=== PATIENT | male | born 1960 | race Caucasian/White ===

== ENCOUNTER 2017-04-24 19:06 | Inpatient (IN) | payer SELFPAY ==
[~2017-04-24] VITALS: Ht 177.8 cm; Wt 67.9 kg
[2017-04-24 19:40] VITALS: BP 211/109; PULSE 85; RESP 18; TEMP 98.7; O2SAT 98
[2017-04-24 20:05] VITALS: BP 214/114; PULSE 86; RESP 20; TEMP 98.6; O2SAT 98
[2017-04-24] MEDS ORDERED: PANTOPRAZOLE SODIUM 40 MG VIAL IV PUSH ONE (20:15)
[2017-04-24] MEDS ORDERED: MORPHINE SULFATE 4 MG/ML INJ IV PUSH ONE (20:15)
--- NOTE | 2017-04-24 20:18 | PD ---
HPI Chief Complaint: Abdominal Pain Time Seen by Provider: 20:01 Travel History International Travel<30 days: No Contact w/Intl Traveler<30days: No Traveled to known affect area: No History of Present Illness HPI 57yo M with no PMH presents to the ED with c/o epigastric abdominal pain for 2 days. Said it is sharp, intermittent and nonradiating. Associated with blood in diarrhea. Pt said he drinks alcohol but not every day, maybe every 2-3 days. Pt has not seen a physician in 25 years and has had blood in stool before but never seek medical attention. Denies any fever, chest pain, sob, n/ v. No exacerbating or alleviating factors. PFSH Past Medical History Tetanus Vaccination: Never Vaccinated Influenza Vaccination: No Social History Alcohol Use: Yes (Few beers a week ) Tobacco Use: Yes (1 PPD) Substance Use: Yes (Marijuana Daily ) Allergies-Medications (Allergen,Severity, Reaction): Coded Allergies: No Known Allergies (Unverified , 04/24/17) Review of Systems Except as stated in HPI: all other systems reviewed are Neg Physical Exam Narrative GENERAL: 57yo M in mild distress. SKIN: Focused skin assessment warm/dry. HEAD: Atraumatic. Normocephalic. CARDIOVASCULAR: Regular rate and rhythm. No murmur appreciated. RESPIRATORY: No accessory muscle use. Clear to auscultation. Breath sounds equal bilaterally. GASTROINTESTINAL: Abdomen soft, +TTP Epigastric, LLQ, and suprapubic region. No rebound tenderness or guarding. MUSCULOSKELETAL: No obvious deformities. No clubbing. No cyanosis. No edema. RECTAL: Could not get much stool but from what I had, it was black and it was hemaprompt positive. NEUROLOGICAL: Awake and alert. No obvious cranial nerve deficits. Motor grossly within normal limits. Normal speech. PSYCHIATRIC: Appropriate mood and affect; insight and judgment normal. Data Data Last Documented VS Vital Signs Date Time Temp Pulse Resp B/P (MAP) Pulse Ox O2 Delivery O2 Flow Rate FiO2 04/24/17 21:49 82 18 152/98 (116) 98 Room Air 04/24/17 20:05 98.6 Orders Orders Complete Blood Count With Diff (04/24/17 20:09) Comprehensive Metabolic Panel (04/24/17 20:09) Lipase (04/24/17 20:09) Prothrombin Time / Inr (Pt) (04/24/17 20:09) Act Partial Throm Time (Ptt) (04/24/17 20:09) Urinalysis - C+S If Indicated (04/24/17 20:09) Ct Abd/Pel W Iv Contrast(Rout) (04/24/17 20:09) Morphine Inj (Morphine Inj) (04/24/17 20:15) Electrocardiogram (04/24/17 20:09) Type And Screen (04/24/17 20:13) Pantoprazole Inj (Protonix Inj) (04/24/17 20:15) Troponin I (04/24/17 20:20) Iohexol 350 Inj (Omnipaque 350 Inj) (04/24/17 21:20) Ciprofloxacin 400 Mg Premix (Cipro 400 M (04/24/17 22:00) Metronidazole (Flagyl) (04/24/17 22:00) Morphine Inj (Morphine Inj) (04/24/17 22:15) Ciprofloxacin 400 Mg Premix (Cipro 400 M (04/25/17 09:00) Metronidazole (Flagyl) (04/25/17 06:00) Admit To Inpatient (04/24/17 ) Vital Signs (Adult) Q4H (04/24/17 22:19) Activity Oob Ad Lillie (04/24/17 22:19) Intake + Output MOJGAN.QSHIFT (04/24/17 22:19) Diet Regular Basic (04/25/17 Breakfast) Sodium Chlor 0.9% 1000 Ml Inj (Ns 1000 M (04/24/17 22:19) Sodium Chloride 0.9% Flush (Ns Flush) (04/24/17 22:30) Sodium Chloride 0.9% Flush (Ns Flush) (04/25/17 09:00) Ondansetron Inj (Zofran Inj) (04/24/17 22:30) Comprehensive Metabolic Panel (04/25/17 06:00) Complete Blood Count With Diff (04/25/17 06:00) Scd Bilateral/Knee High MOJGAN.BID (04/24/17 22:19) Suresh Bilateral/Knee High MOJGAN.QSHIFT (04/24/17 22:20) Acetaminophen (Tylenol) (04/24/17 22:30) Acetamin-Hydrocod 325-5 Mg (B[place]lett 5-325 (04/24/17 22:30) Morphine Inj (Morphine Inj) (04/24/17 22:30) Docusate Sodium-Senna (Donna-Colace) (04/25/17 09:00) Magnesium Hydroxide Liq (Milk Of Magnesi (04/24/17 22:30) Sennosides (Senokot) (04/24/17 22:30) Bisacodyl Supp (Dulcolax Supp) (04/24/17 22:30) Lactulose Liq (Lactulose Liq) (04/24/17 22:30) Inpatient Certification (04/24/17 ) Famotidine Inj (Pepcid Inj) (04/25/17 09:00) Admit Order (Ed Use Only) (04/24/17 22:21) Labs Laboratory Tests Test 04/24/17 20:20 04/24/17 21:48 White Blood Count 6.9 TH/MM3 Red Blood Count 4.74 MIL/MM3 Hemoglobin 16.3 GM/DL Hematocrit 47.6 % Mean Corpuscular Volume 100.5 FL Mean Corpuscular Hemoglobin 34.4 PG Mean Corpuscular Hemoglobin Concent 34.3 % Red Cell Distribution Width 14.0 % Platelet Count 201 TH/MM3 Mean Platelet Volume 9.4 FL Neutrophils (%) (Auto) 71.9 % Lymphocytes (%) (Auto) 19.2 % Monocytes (%) (Auto) 7.6 % Eosinophils (%) (Auto) 0.8 % Basophils (%) (Auto) 0.5 % Neutrophils # (Auto) 4.9 TH/MM3 Lymphocytes # (Auto) 1.3 TH/MM3 Monocytes # (Auto) 0.5 TH/MM3 Eosinophils # (Auto) 0.1 TH/MM3 Basophils # (Auto) 0.0 TH/MM3 CBC Comment DIFF FINAL Differential Comment Prothrombin Time 9.8 SEC Prothromb Time International Ratio 1.0 RATIO Activated Partial Thromboplast Time 27.5 SEC Blood Urea Nitrogen 11 MG/DL Creatinine 0.76 MG/DL Random Glucose 92 MG/DL Total Protein 8.0 GM/DL Albumin 3.8 GM/DL Calcium Level 9.1 MG/DL Alkaline Phosphatase 88 U/L Aspartate Amino Transf (AST/SGOT) 61 U/L Alanine Aminotransferase (ALT/SGPT) 70 U/L Total Bilirubin 0.9 MG/DL Sodium Level 128 MEQ/L Potassium Level 4.1 MEQ/L Chloride Level 94 MEQ/L Carbon Dioxide Level 25.8 MEQ/L Anion Gap 8 MEQ/L Estimat Glomerular Filtration Rate 106 ML/MIN Troponin I LESS THAN 0.02 NG/ML Lipase 168 U/L Urine Color YELLOA Urine Turbidity CLEAR Urine pH 6.5 Urine Specific [place] GREATER THAN 1.035 Urine Protein TRACE mg/dL Urine Glucose (UA) NEG mg/dL Urine Ketones 40 mg/dL Urine Occult Blood TRACE Urine Nitrite NEG Urine Bilirubin NEG Urine Leukocyte Esterase NEG Urine RBC 0-3 /hpf Urine WBC 0-2 /hpf Urine Squamous Epithelial Cells 0-5 /hpf Microscopic Urinalysis Comment CULT NOT INDICATED MDM Medical Decision Making Medical Screen Exam Complete: Yes Emergency Medical Condition: Yes Interpretation(s) EKG: NSR 86bpm. RBBB. 1mm ST segment elevation in V1, V2. 1mm ST depression II, III, aVF. Differential Diagnosis Pancreatitis vs. peptic ulcer disease vs. colitis vs. AV malformation Narrative Course 57yo M with abdominal pain for 2 days. Also with blood in stool. Hemaprompt positive. Pt given protonix. Labs reviewed, no leukocytosis. Mild hyponatremia at 128. Troponin negative. Lipase normal. UA negative. CT a/p showed diffuse wall thickening involving multiple loops of small intestine suggestive of diffuse enteritis. Pt given morphine but pain returned so given a second dose. Pt given cipro and flagyl. Discussed with Dr. Iglesias and accepted to her service for enteritis. HemaPrompt Point of Care Internal Pos. & Neg. Controls: Passed Fecal Specimen Occult Blood: Positive Diagnosis Primary Impression: Enteritis Admitting Information Admitting Physician Requests: Admit Melissa Marshall DO Apr 24, 2017 20:18
[2017-04-24 20:27] VITALS: BP 169/103; PULSE 73; RESP 20; O2SAT 96
[2017-04-24 20:41] LABS: AUTOMATED NEUTROPHIL # 4.9 TH/MM3 (1.8-7.7); BASOPHIL % 0.5 % (0.0-2.0); EOSINOPHIL # 0.1 TH/MM3 (0-0.4); EOSINOPHIL % 0.8 % (0.0-4.0); HEMATOCRIT 47.6 % (39.0-51.0); HEMOGLOBIN 16.3 GM/DL (13.0-17.0); LYMPH % 19.2 % (9.0-44.0); LYMPHOCYTE # 1.3 TH/MM3 (1.0-4.8); MEAN CELL VOLUME 100.5 FL (80.0-100.0); MEAN CORPUSCULAR HEMOGLOBIN 34.4 PG (27.0-34.0); MEAN CORPUSCULAR HGB CONC 34.3 % (32.0-36.0); MEAN PLATELET VOLUME 9.4 FL (7.0-11.0); MONO % 7.6 % (0.0-8.0); MONOCYTE # 0.5 TH/MM3 (0-0.9); NEUT % 71.9 % (16.0-70.0); PLATELET COUNT 201 TH/MM3 (150-450); RED BLOOD COUNT 4.74 MIL/MM3 (4.50-5.90); WHITE BLOOD COUNT 6.9 TH/MM3 (4.0-11.0)
[2017-04-24 20:49] LABS: CHLORIDE 94 MEQ/L (98-107); SODIUM (NA) 128 MEQ/L (136-145)
[2017-04-24 20:53] LABS: CALCIUM 9.1 MG/DL (8.5-10.1)
[2017-04-24 20:54] LABS: ALBUMIN 3.8 GM/DL (3.4-5.0); BICARBONATE 25.8 MEQ/L (21.0-32.0); BLOOD UREA NITROGEN 11 MG/DL (7-18); GLUCOSE,RANDOM 92 MG/DL (74-106)
[2017-04-24 20:55] LABS: PROTHROMBIN TIME - PATIENT 9.8 SEC (9.8-11.6)
[2017-04-24 20:56] LABS: ALT (GPT) 70 U/L (12-78); AST (GOT) 61 U/L (15-37); CREATININE 0.76 MG/DL (0.60-1.30); GLOMERULAR FILTRATION RATE 106 ML/MIN (>89)
[2017-04-24 20:58] LABS: TOTAL BILIRUBIN ADULT 0.9 MG/DL (0.2-1.0)
[2017-04-24 20:59] LABS: ALKALINE PHOSPHATASE 88 U/L (45-117)
[2017-04-24] MEDS ORDERED: IOHEXOL 350 MG/ML 10 ML VIAL (for RAD DIAG) IVCONTRAST ONE (21:20)
[2017-04-24 21:32] LABS: TROPONIN I LESS THAN 0.02 NG/ML (0.02-0.05)
--- NOTE | 2017-04-24 21:35 | RADRPT ---
EXAM DATE/TIME: 04/24/2017 21:07 [place] COMPARISON: No previous studies available for comparison. INDICATIONS : Epigastric pain. IV CONTRAST: 100 cc Omnipaque 350 (iohexol) IV ORAL CONTRAST: No oral contrast ingested. RADIATION DOSE: 8.31 CTDIvol (mGy) MEDICAL HISTORY : None SURGICAL HISTORY : None. ENCOUNTER: Initial ACUITY: 3 days PAIN SCALE: 10/10 LOCATION: Left upper quadrant TECHNIQUE: Volumetric scanning of the abdomen and pelvis was performed. Using automated exposure control and ad justment of the mA and/or kV according to patient size, radiation dose was kept as low as reasonably achievable to obtain optimal diagnostic quality images. DICOM format image data is available electro nically for review and comparison. FINDINGS: There is evidence of diffuse wall thickening involving multiple loops of small intestine suggestive o f diffuse enteritis. Clinical correlation is recommended. Some ascites is noted within the abdomen an d pelvis. Uncomplicated sigmoid diverticulosis is noted. The liver demonstrates diffuse fatty infiltr ation. No focal mass is noted. No biliary ductal dilatation is noted. The gallbladder is unremarkable for the spleen is normal. The pancreas is also normal. The adrenal glands are normal bilaterally. Th e kidneys enhance briskly in observed no evidence of focal mass or hydronephrosis. The urinary bladde r is unremarkable. The prostate gland is calcified. The bowel aorta is calcified but is not aneurysma lly dilated. Inferior vena cava is normal. There is no periaortic, retroperitoneal or mesenteric lymp hadenopathy. The visualized lung bases are clear. CONCLUSION: 1. Diffuse wall thickening involving multiple loops of small intestine suggestive of diffuse enteriti s. Clinical correlation is recommended. 2. Some ascites within the abdomen. 3. Uncomplicated sigmoid diverticulosis. Jesse Willard MD on April 24, 2017 at 21:28 Board Certified Radiologist. This report was verified electronically.
[2017-04-24 21:49] VITALS: BP 152/98; PULSE 82; RESP 18; O2SAT 98
[2017-04-24 21:58] LABS: BLOOD, URINE TRACE (NEG); GLUCOSE,URINE NEG (NEG); KETONE, URINE 40 mg/dL (NEG); NITRITE,URINE NEG (NEG); PH, URINE 6.5 (5.0-8.5); URINE LEUKOCYTE ESTERASE NEG (NEG)
[2017-04-24] MEDS ORDERED: metroNIDAZOLE 500 MG TAB PO ONE (22:00)
[2017-04-24] MEDS ORDERED: CIPROFLOXACIN 400 MG PREMIX 200 ML IV ONE (22:00)
[2017-04-24 22:02] LABS: BILIRUBIN, URINE NEG (NEG)
[2017-04-24 22:14] LABS: URINE COLOR YELLOA (YELLW/STRAW)
[2017-04-24 22:15] LABS: RBC, URINE 0-3 /hpf (0-3); SQUAMOUS EPITHELIAL CELL URINE 0-5 /hpf (0-5); WBC, URINE 0-2 /hpf (0-5)
[2017-04-24] MEDS ORDERED: MORPHINE SULFATE 2 MG/ML INJ IV PUSH ONE (22:15)
[2017-04-24] MEDS: SODIUM CHLOR 0.9% 1000 ML INJ 1,000 ML IV SCH (22:19)
[2017-04-24 22:23] VITALS: BP 143/85; PULSE 74; RESP 18; O2SAT 97
[2017-04-24] MEDS ORDERED: BISACODYL 10 MG SUPP RECTAL PRN (22:30)
[2017-04-24] MEDS ORDERED: SODIUM CHLORIDE 0.9% FLUSH 10 ML FLUSH IV FLUSH PRN (22:30)
[2017-04-24] MEDS ORDERED: LACTULOSE SYRUP 20 GM/30 ML CUP PO PRN (22:30)
[2017-04-24] MEDS ORDERED: ONDANSETRON HCL 4 MG/2 ML VIAL IVP PRN (22:30)
[2017-04-24] MEDS ORDERED: SENNOSIDES 8.6 MG TAB PO PRN (22:30)
[2017-04-24] MEDS ORDERED: ACETAMINOPHEN 325 MG TAB PO PRN (22:30)
[2017-04-24] MEDS ORDERED: MAGNESIUM HYDROXIDE SUSP 30 ML CUP PO PRN (22:30)
[2017-04-24 23:44] VITALS: BP 152/87; PULSE 76; RESP 18; O2SAT 97
[2017-04-25] VITALS (7 sets, daily range): BP systolic 135–197; BP diastolic 80–98; PULSE 60–69; RESP 18–20; TEMP 97.9–99.3; O2SAT 94–95
[2017-04-25] MEDS: MORPHINE SULFATE 2 MG/ML INJ IV PUSH PRN ×3 (00:29→18:23)
[2017-04-25] MEDS: ACETAMINOPHEN/HYDROcodone 325 MG/5 MG TAB PO PRN ×5 (01:43→20:28)
[2017-04-25 04:31] LABS: AUTOMATED NEUTROPHIL # 4.8 TH/MM3 (1.8-7.7); BASOPHIL % 0.7 % (0.0-2.0); EOSINOPHIL # 0.1 TH/MM3 (0-0.4); EOSINOPHIL % 1.3 % (0.0-4.0); HEMATOCRIT 42.8 % (39.0-51.0); HEMOGLOBIN 14.2 GM/DL (13.0-17.0); LYMPH % 21.6 % (9.0-44.0); LYMPHOCYTE # 1.5 TH/MM3 (1.0-4.8); MEAN CELL VOLUME 100.9 FL (80.0-100.0); MEAN CORPUSCULAR HEMOGLOBIN 33.5 PG (27.0-34.0); MEAN CORPUSCULAR HGB CONC 33.2 % (32.0-36.0); MEAN PLATELET VOLUME 8.8 FL (7.0-11.0); MONO % 9.2 % (0.0-8.0); MONOCYTE # 0.7 TH/MM3 (0-0.9); NEUT % 67.2 % (16.0-70.0); PLATELET COUNT 177 TH/MM3 (150-450); RED BLOOD COUNT 4.25 MIL/MM3 (4.50-5.90); RED CELL DISTRIBUTION WIDTH 14.2 % (11.6-17.2); WHITE BLOOD COUNT 7.1 TH/MM3 (4.0-11.0)
[2017-04-25 04:55] LABS: CHLORIDE 97 MEQ/L (98-107); SODIUM (NA) 132 MEQ/L (136-145)
[2017-04-25] MEDS: metroNIDAZOLE 500 MG TAB PO SCH ×3 (05:55→20:28)
[2017-04-25 06:40] LABS: ALKALINE PHOSPHATASE 70 U/L (45-117); ALT (GPT) 51 U/L (12-78); AST (GOT) 43 U/L (15-37); BICARBONATE 29.9 MEQ/L (21.0-32.0); BLOOD UREA NITROGEN 11 MG/DL (7-18); GLOMERULAR FILTRATION RATE 117 ML/MIN (>89); GLUCOSE,RANDOM 92 MG/DL (74-106); TOTAL BILIRUBIN ADULT 0.7 MG/DL (0.2-1.0); TOTAL PROTEIN 6.5 GM/DL (6.4-8.2)
[2017-04-25] MEDS: SODIUM CHLOR 0.9% 1000 ML INJ 1,000 ML IV SCH (08:19)
[2017-04-25] MEDS: SODIUM CHLORIDE 0.9% FLUSH 10 ML FLUSH IV FLUSH SCH (09:00)
[2017-04-25] MEDS ORDERED: CIPROFLOXACIN 400 MG PREMIX 200 ML IV SCH (09:00)
[2017-04-25] MEDS ORDERED: FAMOTIDINE 20 MG/2 ML VIAL IV PUSH SCH (09:00)
[2017-04-25] MEDS: DOCUSATE SODIUM 50 MG/SENNA 8.6 MG TAB PO SCH ×2 (10:02→20:28)
[2017-04-25] MEDS ORDERED: ALUMINUM/MAGNESIUM/SIMETH 30 ML CUP PO PRN (15:00)
--- NOTE | 2017-04-25 15:58 | HHI.HP ---
[facility] Service [place] [facility] Primary Care Physician No Primary Care Physician Admission Diagnosis Enteritis Diagnoses: Chief Complaint: abd pain Travel History International Travel<30 Days: No Contact w/Intl Traveler <30 Da: No Traveled to Known Affected Are: No History of Present Illness This is a 57 year old male with no real past medical history had 4 years on intermittent severe abd pain worse over the last 6 months and unresolved for the pastt 3 days. Associated with bloody non-painful stools. No emesis. Pain is better with zantac and rolaids. He was evaluated in the ER and found to have enteritis on the CT. he was admitted. his Hg has remained stable and his pain has improved with IV morphine Review of Systems Constitutional: DENIES: Diaphoretic episodes, Fatigue, Fever, Weight gain, Weight loss, Chills, Dizziness, Change in appetite, Night Sweats Endocrine: DENIES: Heat/cold intolerance, Polydipsia, Polyuria, Polyphagia Eyes: DENIES: Blurred vision, Diplopia, Eye inflammation, Eye pain, Vision loss , Photosensitivity, Double Vision Ears, nose, mouth, throat: DENIES: Tinnitus, Hearing loss, Vertigo, Nasal discharge, Oral lesions, Throat pain, Hoarseness, Ear Pain, Running Nose, Epistaxis, Sinus Pain, Toothache, Odynophagia Respiratory: DENIES: Apneas, Cough, Snoring, Wheezing, Hemoptysis, Sputum production, Shortness of breath Cardiovascular: DENIES: Chest pain, Palpitations, Syncope, Dyspnea on Exertion , PND, Lower Extremity Edema, Orthopnea, Claudication Gastrointestinal: COMPLAINS OF: Abdominal pain Genitourinary: DENIES: Sexual dysfunction, Urinary frequency, Urinary incontinence, Urgency, Hematuria, Dysuria, Nocturia, Penile Discharge, Testicular Pain, Testicular Swelling Musculoskeletal: DENIES: Joint pain, Muscle aches, Stiffness, Joint Swelling, Back pain, Neck pain Integumentary: DENIES: Abnormal pigmentation, Nail changes, Pruritus, Rash Hematologic/lymphatic: DENIES: Bruising, Lymphadenopathy Immunologic/allergic: DENIES: Eczema, Urticaria Neurologic: DENIES: Abnormal gait, Headache, Localized weakness, Paresthesias, Seizures, Speech Problems, Tremor, Poor Balance Psychiatric: DENIES: Anxiety, Confusion, Mood changes, Depression, Hallucinations, Agitation, Suicidal Ideation, Homicidal Ideation, Delusions Except as stated in HPI: all other systems reviewed are Neg Past Family Social History Past Medical History None Past Surgical History jaw surgery 25 yrs ago Reported Medications None Allergies: Coded Allergies: No Known Allergies (Unverified , 04/24/17) Active Ordered Medications Reviewed in the AM Family History Mother in her 80s from breast ca Father in his 80s from Brain ca Social History Smokes 1ppd x 40 yrs Beer occasionally Works as a baker chef [employer] Physical Exam Vital Signs Vital Signs Date Time Temp Pulse Resp B/P (MAP) Pulse Ox O2 Delivery O2 Flow Rate FiO2 04/25/17 11:00 98.7 04/25/17 10:50 135/80 (98) 04/25/17 10:50 135/80 (98) 04/25/17 10:50 135/80 (98) 04/25/17 07:30 97.9 04/25/17 04:17 99.2 60 18 141/86 (104) 95 04/25/17 00:34 161/89 (113) 94 04/25/17 00:21 99.3 66 20 197/98 (131) 94 04/25/17 00:16 04/24/17 23:44 76 18 152/87 (108) 97 Room Air 04/24/17 22:23 74 18 143/85 (104) 97 Room Air 04/24/17 21:49 82 18 152/98 (116) 98 Room Air 04/24/17 20:27 73 20 169/103 (125) 96 Room Air 04/24/17 20:05 98.6 86 20 214/114 (147) 98 Room Air 04/24/17 19:40 98.7 85 18 211/109 (143) 98 Physical Exam GENERAL: This is a well-nourished, well-developed patient, in no apparent distress. SKIN: No rashes, ecchymoses or lesions. Cool and dry. HEAD: Atraumatic. Normocephalic. No temporal or scalp tenderness. EYES: Pupils equal round and reactive. Extraocular motions intact. No scleral icterus. No injection or drainage. ENT: Nose without bleeding, purulent drainage or septal hematoma. Throat without erythema, tonsillar hypertrophy or exudate. Uvula midline. Airway patent. NECK: Trachea midline. No JVD or lymphadenopathy. Supple, nontender, no meningeal signs. CARDIOVASCULAR: Regular rate and rhythm without murmurs, gallops, or rubs. RESPIRATORY: Clear to auscultation. Breath sounds equal bilaterally. No wheezes , rales, or rhonchi. GASTROINTESTINAL: Abdomen soft, non-tender, nondistended. No hepato-splenomegaly , or palpable masses. No guarding. MUSCULOSKELETAL: Extremities without clubbing, cyanosis, or edema. No joint tenderness, effusion, or edema noted. No calf tenderness. Negative Homans sign bilaterally. NEUROLOGICAL: Awake and alert. Cranial nerves II through XII intact. Motor and sensory grossly within normal limits. Five out of 5 muscle strength in all muscle groups. Normal speech. Laboratory Laboratory Tests Test 04/24/17 20:20 04/24/17 21:48 04/25/17 04:20 White Blood Count 6.9 7.1 Red Blood Count 4.74 4.25 Hemoglobin 16.3 14.2 Hematocrit 47.6 42.8 Mean Corpuscular Volume 100.5 100.9 Mean Corpuscular Hemoglobin 34.4 33.5 Mean Corpuscular Hemoglobin Concent 34.3 33.2 Red Cell Distribution Width 14.0 14.2 Platelet Count 201 177 Mean Platelet Volume 9.4 8.8 Neutrophils (%) (Auto) 71.9 67.2 Lymphocytes (%) (Auto) 19.2 21.6 Monocytes (%) (Auto) 7.6 9.2 Eosinophils (%) (Auto) 0.8 1.3 Basophils (%) (Auto) 0.5 0.7 Neutrophils # (Auto) 4.9 4.8 Lymphocytes # (Auto) 1.3 1.5 Monocytes # (Auto) 0.5 0.7 Eosinophils # (Auto) 0.1 0.1 Basophils # (Auto) 0.0 0.0 CBC Comment DIFF FINAL DIFF FINAL Differential Comment Prothrombin Time 9.8 Prothromb Time International Ratio 1.0 Activated Partial Thromboplast Time 27.5 Blood Urea Nitrogen 11 11 Creatinine 0.76 0.70 Random Glucose 92 92 Total Protein 8.0 6.5 Albumin 3.8 3.0 Calcium Level 9.1 8.0 Alkaline Phosphatase 88 70 Aspartate Amino Transf (AST/SGOT) 61 43 Alanine Aminotransferase (ALT/SGPT) 70 51 Total Bilirubin 0.9 0.7 Sodium Level 128 132 Potassium Level 4.1 4.8 Chloride Level 94 97 Carbon Dioxide Level 25.8 29.9 Anion Gap 8 5 Estimat Glomerular Filtration Rate 106 117 Troponin I LESS THAN 0.02 Lipase 168 Urine Color YELLOA Urine Turbidity CLEAR Urine pH 6.5 Urine Specific [place] GREATER THAN 1.035 Urine Protein TRACE Urine Glucose (UA) NEG Urine Ketones 40 Urine Occult Blood TRACE Urine Nitrite NEG Urine Bilirubin NEG Urine Leukocyte Esterase NEG Urine RBC 0-3 Urine WBC 0-2 Urine Squamous Epithelial Cells 0-5 Microscopic Urinalysis Comment CULT NOT INDICATED Result Diagram: 04/25/1741904/25/17419 Imaging Last Impressions Abdomen/Pelvis CT 04/24/172008 Signed Impressions: Service Date/Time: Monday, April 24, 2017 21:07 - CONCLUSION: 1. Diffuse wall thickening involving multiple loops of small intestine suggestive of diffuse enteritis. Clinical correlation is recommended. 2. Some ascites within the abdomen. 3. Uncomplicated sigmoid diverticulosis. Jesse Willard MD Caprini VTE Risk Assessment Caprini VTE Risk Assessment: No/Low Risk (score <= 1) VTE Pharm Contraindication: High risk for bleeding Caprini Risk Assessment Model Point Value = 1 Point Value = 2 Point Value = 3 Point Value = 5 Age 41-60 Minor surgery BMI > 25 kg/m2 Swollen legs Varicose veins or History of unexplained or recurrent spontaneous Oral contraceptives or hormone replacement Sepsis (< 1 month) Serious lung disease, including pneumonia (< 1 month) Abnormal pulmonary function Acute myocardial infarction Congestive heart failure (< 1 month) History of inflammatory bowel disease Medical patient at bed rest Age 61-74 Arthroscopic surgery Major open surgery (> 45 min) Laparoscopic surgery (> 45 min) Malignancy Confined to bed (> 72 hours) Immobilizing plaster cast Central venous access Age >= 75 History of VTE Family history of VTE Factor V Leiden Prothrombin [id number] Lupus anticoagulant Anticardiolipin antibodies Elevated serum homocysteine Heparin-induced thrombocytopenia Other congenital or acquired thrombophilia Stroke (< 1 month) Elective arthroplasty Hip, pelvis, or leg fracture Acute spinal cord injury (< 1 month) Prophylaxis Regimen Total Risk Factor Score Risk Level Prophylaxis Regimen 0-1 Low Early ambulation 2 Moderate Order ONE of the following: *Sequential Compression Device (SCD) *Heparin 5000 units SQ BID 3-4 Higher Order ONE of the following medications: *Heparin 5000 units SQ TID *Enoxaparin/Lovenox 40 mg SQ daily (WT < 150 kg, CrCl > 30 mL/min) *Enoxaparin/Lovenox 30 mg SQ daily (WT < 150 kg, CrCl > 10-29 mL/min) *Enoxaparin/Lovenox 30 mg SQ BID (WT < 150 kg, CrCl > 30 mL/min) AND/OR *Sequential Compression Device (SCD) 5 or more Highest Order ONE of the following medications: *Heparin 5000 units SQ TID (Preferred with Epidurals) *Enoxaparin/Lovenox 40 mg SQ daily (WT < 150 kg, CrCl > 30 mL/min) *Enoxaparin/Lovenox 30 mg SQ daily (WT < 150 kg, CrCl > 10-29 mL/min) *Enoxaparin/Lovenox 30 mg SQ BID (WT < 150 kg, CrCl > 30 mL/min) AND *Sequential Compression Device (SCD) Assessment and Plan Problem List: (1) Enteritis ICD Code: K52.9 - Noninfective gastroenteritis and colitis, unspecified Plan: Improved symptoms on Abx Ladd to PO Cipro, metronidazole (2) Hyponatremia ICD Code: E87.1 - Hypo-osmolality and hyponatremia Plan: Resolved (3) Dyspepsia ICD Code: R10.13 - Epigastric pain Plan: PPI BId, has refused further invasive eval by endoscopy This is reasonable given his stable blood counts and concurrent enteritis Assessment and Plan likely dc in am on po abx Physician Certification 2 Midnight Certification Type: Admission for Inpatient Services Order for Inpatient Services The services are ordered in accordance with Medicare regulations or non- Medicare payer requirements, as applicable. In the case of services not specified as inpatient-only, they are appropriately provided as inpatient services in accordance with the 2-midnight benchmark. Estimated LOS (days): 3 3 days is the estimated time the patient will need to remain in the hospital, assuming treatment plan goals are met and no additional complications. Post-Hospital Plan: Home Juana Daniels MD Apr 25, 2017 15:58
[2017-04-25] MEDS: LACTOBACILLUS ACIDOPHILUS TAB PO SCH ×2 (16:23→20:28)
[2017-04-25] MEDS: PANTOPRAZOLE SOD 40 MG DELAYED RELEASE TAB PO SCH ×2 (16:23→20:28)
[2017-04-25] MEDS: CIPROFLOXACIN 500 MG TAB PO SCH (20:28)
[2017-04-26] VITALS: BP 135/82; PULSE 61; RESP 18; TEMP 98.4; O2SAT 96
--- NOTE | 2017-04-26 00:47 | EKG ---
Date Performed: 04/24/2017 Time Performed: 20:19:57 PTAGE: 57 years EKG: Sinus rhythm POSSIBLE LEFT ATRIAL ENLARGEMENT BORDERLINE RIGHT AXIS DEVIATION MODERATE INTRAVENTRICULAR CONDUCTIO N DELAY MODERATE ST DEPRESSION ABNORMAL ECG NO PREVIOUS TRACING DOCTOR: Jay Jay Carver Interpretating Date/Time 04/26/2017 00:45:26
[2017-04-26 03:44] VITALS: BP 145/78; PULSE 59; RESP 18; TEMP 98.6; O2SAT 96
[2017-04-26] MEDS: SODIUM CHLORIDE 0.9% FLUSH 10 ML FLUSH IV FLUSH SCH ×3 (03:46→19:40)
[2017-04-26 04:00] VITALS: O2SAT 96
[2017-04-26 04:32] LABS: AUTOMATED NEUTROPHIL # 3.2 TH/MM3 (1.8-7.7); BASOPHIL % 0.5 % (0.0-2.0); EOSINOPHIL # 0.2 TH/MM3 (0-0.4); EOSINOPHIL % 3.7 % (0.0-4.0); HEMATOCRIT 40.5 % (39.0-51.0); HEMOGLOBIN 13.1 GM/DL (13.0-17.0); LYMPH % 23.6 % (9.0-44.0); LYMPHOCYTE # 1.2 TH/MM3 (1.0-4.8); MEAN CELL VOLUME 100.9 FL (80.0-100.0); MEAN CORPUSCULAR HEMOGLOBIN 32.5 PG (27.0-34.0); MEAN CORPUSCULAR HGB CONC 32.2 % (32.0-36.0); MEAN PLATELET VOLUME 8.7 FL (7.0-11.0); MONO % 10.4 % (0.0-8.0); MONOCYTE # 0.5 TH/MM3 (0-0.9); NEUT % 61.8 % (16.0-70.0); PLATELET COUNT 161 TH/MM3 (150-450); RED BLOOD COUNT 4.01 MIL/MM3 (4.50-5.90); RED CELL DISTRIBUTION WIDTH 14.1 % (11.6-17.2); WHITE BLOOD COUNT 5.1 TH/MM3 (4.0-11.0)
[2017-04-26] MEDS: metroNIDAZOLE 500 MG TAB PO SCH ×3 (06:59→21:12)
[2017-04-26] MEDS: ACETAMINOPHEN/HYDROcodone 325 MG/5 MG TAB PO PRN ×2 (09:17→21:12)
[2017-04-26] MEDS: LACTOBACILLUS ACIDOPHILUS TAB PO SCH ×2 (09:17→19:49)
[2017-04-26] MEDS: DOCUSATE SODIUM 50 MG/SENNA 8.6 MG TAB PO SCH ×2 (09:17→19:49)
[2017-04-26] MEDS: PANTOPRAZOLE SOD 40 MG DELAYED RELEASE TAB PO SCH ×2 (09:17→19:49)
[2017-04-26] MEDS: CIPROFLOXACIN 500 MG TAB PO SCH ×2 (09:17→19:49)
--- NOTE | 2017-04-26 10:59 | HHI.PR ---
Subjective Remarks patient seen and evaluated today again for abdominal pain. Hemoglobin is a bit lower. Patient still with severe abdominal pain with oral intake. He is now agreeable to further evaluation via endoscopy for likely upper GI related symptoms. Pain is severe and worse with food Objective Vitals Vital Signs Date Time Temp Pulse Resp B/P (MAP) Pulse Ox O2 Delivery O2 Flow Rate FiO2 04/26/17 10:18 18 04/26/17 09:17 20 04/26/17 04:00 96 04/26/17 03:44 98.6 59 18 145/78 (100) 96 04/26/17 00:00 98.4 61 18 135/82 (99) 96 04/25/17 20:00 98.0 69 18 144/86 (105) 95 04/25/17 11:00 98.7 I/O 04/25/17 04/25/17 04/25/17 04/26/17 04/26/17 04/26/17 07:00 15:00 23:00 07:00 15:00 23:00 Intake Total 1070 ml 240 ml Output Total 1150 ml Balance -80 ml 240 ml Intake Oral 220 ml 240 ml IV Total 850 ml Output Urine Total 1150 ml # Voids 2 1 1 # Bowel Movements 1 0 Result Diagram: 04/26/17 0425 04/25/17 0420 Imaging Last Impressions Abdomen/Pelvis CT 04/24/172008 Signed Impressions: Service Date/Time: Monday, April 24, 2017 21:07 - CONCLUSION: 1. Diffuse wall thickening involving multiple loops of small intestine suggestive of diffuse enteritis. Clinical correlation is recommended. 2. Some ascites within the abdomen. 3. Uncomplicated sigmoid diverticulosis. Jesse Willard MD Objective Remarks GENERAL: This is a well-nourished, well-developed patient, in no apparent distress. CARDIOVASCULAR: Regular rate and rhythm without murmurs, gallops, or rubs. RESPIRATORY: Clear to auscultation. Breath sounds equal bilaterally. No wheezes , rales, or rhonchi. GASTROINTESTINAL: Abdomen soft, non-tender, nondistended. Normal active bowel sounds MUSCULOSKELETAL: Extremities without clubbing, cyanosis, or edema. NEURO: Alert & Oriented x4 to person, place, time, situation. Moves all ext x4 A/P Problem List: (1) Enteritis ICD Code: K52.9 - Noninfective gastroenteritis and colitis, unspecified Plan: Improved symptoms on Abx Change to PO Cipro, metronidazole (2) Hyponatremia ICD Code: E87.1 - Hypo-osmolality and hyponatremia Plan: Resolved with IV hydration (3) Dyspepsia ICD Code: R10.13 - Epigastric pain Plan: PPI twice a day, has now agreed to further evaluation by GI. We will consult them for possible endoscopy Hemoglobin is a bit lower although still not in transfusion ranged Clear liquids with nothing by mouth at midnight IV morphine for pain Juana Daniels MD Apr 26, 2017 10:59
[2017-04-26] MEDS: MORPHINE SULFATE 2 MG/ML INJ IV PUSH PRN ×3 (11:49→19:40)
[2017-04-26 13:00] VITALS: BP 161/96; PULSE 57; RESP 18; TEMP 98.7; O2SAT 97
[2017-04-26] MEDS: NICOTINE 14 MG/24 HR PATCH T-DERMAL SCH (14:13)
--- NOTE | 2017-04-26 16:50 | PD.CONS ---
HPI History of Present Illness This is a 57 year old M with no significant medical history, however he states he has not been to see a doctor in over 20 years. He presented to the ER two days ago with complaints of epigastric pain that has been intermittent for the past four years but increasing in intensity and frequency over the past six months. States it gets worse when he is stressed also worse after eating or drinking. He reports history of GIB from NSAIDs and ASA but never saw a doctor for evaluation, just stopped taking NSAIDs with relief of blood in his stools. At time of admission he was also complaining of BRBPR, approx six or seven episodes on Monday and Monday, since resolved. CT abdomen and pelvis W/ IV contrast (04/24) --> Diffuse wall thickening involving multiple loops of small intestine suggestive of diffuse enteritis. Some ascites within the abdomen. Uncomplicated sigmoid diverticulosis. H/H has dropped from 16.3/47.6 at time of admission to 13.1/40.5. Reports some nausea, denies emesis. Denies heart burn. ETOH, a few beers three times a week. Current pack a day smoker since he was [age] years old. Denies ever having EGD or colonoscopy. (Justa Alonso) PFSH Past Medical History None Past Surgical History jaw surgery 25 yrs ago (Justa Alonso) Coded Allergies: No Known Allergies (Unverified , 04/24/17) Family History Mother in her 80s from breast ca Father in his 80s from Brain ca Social History Smokes 1ppd x 40 yrs Beer occasionally Works as a pantry chef [employer] (Justa Alonso) Review of Systems Gastrointestinal: COMPLAINS OF: Abdominal pain, Bloody stools, Diarrhea, Nausea , DENIES: Black stools, Constipation, Vomiting, Difficulty Swallowing, Odynophagia, Swelling of Abdomen, Heartburn, Hematemesis (Justa Alonso) GI Exam Vitals I&O Vital Signs Date Time Temp Pulse Resp B/P (MAP) Pulse Ox O2 Delivery O2 Flow Rate FiO2 04/26/17 16:25 18 04/26/17 13:00 98.7 57 18 161/96 (117) 97 04/26/17 10:18 18 04/26/17 09:17 20 04/26/17 04:00 96 04/26/17 03:44 98.6 59 18 145/78 (100) 96 04/26/17 00:00 98.4 61 18 135/82 (99) 96 04/25/17 20:00 98.0 69 18 144/86 (105) 95 I/O 04/25/17 04/25/17 04/25/17 04/26/17 04/26/17 04/26/17 07:00 15:00 23:00 07:00 15:00 23:00 Intake Total 1070 ml 240 ml Output Total 1150 ml Balance -80 ml 240 ml Intake Oral 220 ml 240 ml IV Total 850 ml Output Urine Total 1150 ml # Voids 2 1 1 3 # Bowel Movements 1 0 1 Imaging Last Impressions Abdomen/Pelvis CT 04/24/172008 Signed Impressions: Service Date/Time: Monday, April 24, 2017 21:07 - CONCLUSION: 1. Diffuse wall thickening involving multiple loops of small intestine suggestive of diffuse enteritis. Clinical correlation is recommended. 2. Some ascites within the abdomen. 3. Uncomplicated sigmoid diverticulosis. Jesse Willard MD Laboratory Test 04/26/17 04:25 White Blood Count 5.1 TH/MM3 Red Blood Count 4.01 MIL/MM3 Hemoglobin 13.1 GM/DL Hematocrit 40.5 % Mean Corpuscular Volume 100.9 FL Mean Corpuscular Hemoglobin 32.5 PG Mean Corpuscular Hemoglobin Concent 32.2 % Red Cell Distribution Width 14.1 % Platelet Count 161 TH/MM3 Mean Platelet Volume 8.7 FL Neutrophils (%) (Auto) 61.8 % Lymphocytes (%) (Auto) 23.6 % Monocytes (%) (Auto) 10.4 % Eosinophils (%) (Auto) 3.7 % Basophils (%) (Auto) 0.5 % Neutrophils # (Auto) 3.2 TH/MM3 Lymphocytes # (Auto) 1.2 TH/MM3 Monocytes # (Auto) 0.5 TH/MM3 Eosinophils # (Auto) 0.2 TH/MM3 Basophils # (Auto) 0.0 TH/MM3 CBC Comment DIFF FINAL Differential Comment Physical Examination HEENT: Normocephalic; atraumatic CHEST: Even/unlabored CARDIAC: RRR ABDOMEN: Soft, nondistended, mild lower abdomen TTP, bowel sounds active EXTREMITIES: No clubbing, cyanosis, or edema. SKIN: Normal; no rash; no jaundice. ELIGIBILITY SPECIALIST: No focal deficits; alert and oriented times three. (Justa Alonso) Assessment and Plan Plan Assessment: - Epigastric pain for the past four years, increasing in intensity and frequency over the past six months. Reports history of GIB from NSAIDs and ASA use, but never was evaluated by a doctor, states he stopped taking these medications and it resolved. Has never had EGD. Denies blood thinners, NSAIDS. ETOH few beers three times a week. - BRBPR- Approx 6-7 episodes on Monday and Monday, now resolved. H/H dropped from 16.3/47.6 at time of admission to 13.1/40.5. CT abdomen showing uncomplicated sigmoid diverticulosis. ?diverticular bleed. Has never had colonoscopy. - Enteritis- CT abdomen and pelvis w IV contrast (04/24) --> Diffuse wall thickening involving multiple loops of small intestine suggestive of diffuse enteritis. Pt on Cipro and Flagyl per attending. Plan: EGD/colonoscopy tomorrow Obtain consents Clear liquids today NPO after MN Mag Citrate prep Monitor H/H Transfuse to keep hgb over 8 Notify GI of any active bleeding Continue Protonix Continue Cipro + Flagyl Further recommendations to follow based on results of above Pt has been seen and examined by myself and Dr. Motta and this note is written on his behalf (Justa Alonso) Physician Comments Patient seen and examined Agree with above Continue with current supportive care Monitor labs Plan for an EGD and a colonoscopy tomorrow (Teofilo Motta MD) Justa Alonso Apr 26, 2017 16:50 Teofilo Motta MD Apr 26, 2017 20:38
[2017-04-26] MEDS ORDERED: MAGNESIUM CITRATE SOLN 300 ML BTL PO ONE ×2 (17:00→19:00)
[2017-04-26 17:16] VITALS: BP 149/92; PULSE 68; RESP 18; TEMP 97.7; O2SAT 97
[2017-04-26 19:45] VITALS: BP 172/94; PULSE 65; RESP 18; TEMP 97.7; O2SAT 97
[2017-04-27] VITALS: BP 156/87; PULSE 56; RESP 18; TEMP 98.8; O2SAT 95
[2017-04-27] MEDS: MORPHINE SULFATE 2 MG/ML INJ IV PUSH PRN ×3 (00:54→09:37)
[2017-04-27 05:33] VITALS: BP 162/96; PULSE 60; RESP 16; TEMP 98.3; O2SAT 97
[2017-04-27] MEDS: metroNIDAZOLE 500 MG TAB PO SCH (06:16)
[2017-04-27 06:35] VITALS: BP 160/93; PULSE 61; RESP 16; O2SAT 97
[2017-04-27 07:30] VITALS: BP 160/93; PULSE 61; RESP 16; TEMP 98.3; O2SAT 61
[2017-04-27] MEDS ORDERED: MAGNESIUM CITRATE SOLN 300 ML BTL PO ONE (08:00)
--- NOTE | 2017-04-27 08:05 | PD.PROCEDR ---
GI Procedure PROCEDURE PERFORMED EGD with biopsy followed by colonoscopy with snare polypectomy INDICATION FOR PROCEDURE GI bleed, epigastric pain, abnormal CT PROCEDURE: The procedure, risks and benefits were discussed with Mr. Sims and informed consent was obtained. Anesthesia sedated him with Diprivan. He was placed in the left lateral decubitus position. EGD: The Pentax videoscope was introduced through the oropharynx and advanced to the second portion of the duodenum under direct visualization. Retroflexion was performed in the stomach. FINDINGS: Esophagus this appeared to be unremarkable and within normal limits The stomach there was some patchy erythema in the antrum but no ulcerations no erosions no blood or bleeding the rest of the stomach was unremarkable with normal limits antral biopsies were taken for further evaluation The duodenum this was normal Colonoscopy: The Pentax videoscope was introduced through the rectum and advanced to cecum where the ileocecal valve and appendiceal orifice were identified. Retroflexion was performed in the rectum. Colonic prep was fair FINDINGS: Colonic withdrawal time greater than 6 minutes as the scope was slowly withdrawn colonic mucosa was carefully inspected the patient was noted to have 2 polyps that were sessile medium size in the distal transverse colon both were excised using cold snare technique and were retrieved for further evaluation patient was noted to have moderate diverticulosis of the sigmoid region retroflexion in the rectum was unremarkable and so was rectal examination ESTIMATED BLOOD LOSS: None SPECIMENS REMOVED: Antral biopsy, colon polyps COMPLICATIONS: None IMPRESSION: Mild gastritis Colon polyps Diverticulosis Most likely cause of rectal bleeding is diverticular bleeding PLAN: Await biopsies Advance diet Continue PPI Recommend colonoscopy in 3 years Teofilo Motta MD Apr 27, 2017 08:05
[2017-04-27 08:50] VITALS: BP 144/88; PULSE 60; TEMP 98; O2SAT 100
[2017-04-27] MEDS: NICOTINE 14 MG/24 HR PATCH T-DERMAL SCH (09:00)
[2017-04-27] MEDS: DOCUSATE SODIUM 50 MG/SENNA 8.6 MG TAB PO SCH (09:00)
[2017-04-27] MEDS ORDERED: REMOVE OLD PATCH T-DERMAL SCH (09:00)
[2017-04-27] MEDS: SODIUM CHLORIDE 0.9% FLUSH 10 ML FLUSH IV FLUSH SCH (09:37)
[2017-04-27] MEDS: PANTOPRAZOLE SOD 40 MG DELAYED RELEASE TAB PO SCH (09:39)
[2017-04-27] MEDS: CIPROFLOXACIN 500 MG TAB PO SCH (09:39)
[2017-04-27] MEDS: LACTOBACILLUS ACIDOPHILUS TAB PO SCH (09:39)
[2017-04-27 09:43] VITALS: RESP 18
[2017-04-27] MEDS ORDERED: CIPR-9 PO (11:44)
[2017-04-27] MEDS ORDERED: METR-1 PO (11:44)
[2017-04-27] MEDS ORDERED: TYLETAB34 PO (11:44)
[2017-04-27] MEDS ORDERED: IMIQ5CRE9 TOPICAL (11:46)
--- NOTE | 2017-04-27 11:46 | HHI.DS ---
Discharge Summary Admission Date Apr 24, 2017 at 22:22 Discharge Date: Apr 27, 2017 Admitting Diagnosis Enteritis (1) Enteritis ICD Code: K52.9 - Noninfective gastroenteritis and colitis, unspecified (2) Hyponatremia ICD Code: E87.1 - Hypo-osmolality and hyponatremia (3) Dyspepsia ICD Code: R10.13 - Epigastric pain Procedures EGD, colonoscopy Brief History - From Admission This is a 57 year old male with no real past medical history had 4 years on intermittent severe abd pain worse over the last 6 months and unresolved for the pastt 3 days. Associated with bloody non-painful stools. No emesis. Pain is better with zantac and rolaids. He was evaluated in the ER and found to have enteritis on the CT. he was admitted. his Hg has remained stable and his pain has improved with IV morphine CBC/BMP: 04/26/17 0425 04/25/17 0420 Significant Findings Laboratory Tests Test 04/24/17 20:20 04/24/17 21:48 04/25/17 04:20 04/26/17 04:25 Mean Corpuscular Volume 100.5 FL (80.0-100.0) 100.9 FL (80.0-100.0) 100.9 FL (80.0-100.0) Mean Corpuscular Hemoglobin 34.4 PG (27.0-34.0) Neutrophils (%) (Auto) 71.9 % (16.0-70.0) Aspartate Amino Transf (AST/SGOT) 61 U/L (15-37) 43 U/L (15-37) Sodium Level 128 MEQ/L (136-145) 132 MEQ/L (136-145) Chloride Level 94 MEQ/L (98-107) 97 MEQ/L (98-107) Troponin I LESS THAN 0.02 NG/ML Urine Specific [place] GREATER THAN 1.035 Urine Ketones 40 mg/dL (NEG) Red Blood Count 4.25 MIL/MM3 (4.50-5.90) 4.01 MIL/MM3 (4.50-5.90) Monocytes (%) (Auto) 9.2 % (0.0-8.0) 10.4 % (0.0-8.0) Albumin 3.0 GM/DL (3.4-5.0) Calcium Level 8.0 MG/DL (8.5-10.1) PE at Discharge GENERAL: This is a well-nourished, well-developed patient, in no apparent distress. CARDIOVASCULAR: Regular rate and rhythm without murmurs, gallops, or rubs. RESPIRATORY: Clear to auscultation. Breath sounds equal bilaterally. No wheezes , rales, or rhonchi. GASTROINTESTINAL: Abdomen soft, non-tender, nondistended. Normal active bowel sounds MUSCULOSKELETAL: Extremities without clubbing, cyanosis, or edema. NEURO: Alert & Oriented x4 to person, place, time, situation. Moves all ext x4 Pt update on day of discharge Doing well after endoscopy. Able to tolerate his diet Hospital Course This patient is a 57-year-old gentleman with history of recurrent abdominal pain never evaluated prior to this admission. He did have severe abdominal pain worse with eating and did end up with endoscopy which showed gastritis as well as diverticulosis. CAT scan did show some enteritis. Patient is instructed to continue his medications and follow-up as an outpatient Pt Condition on Discharge: Good Discharge Disposition: Discharge Home Discharge Time: <= 30 minutes Discharge Instructions DIET: Follow Instructions for: As Tolerated, No Restrictions Activities you can perform: Regular-No Restrictions Follow up Referrals: Gastroenterology - 2 Weeks with Teofilo Motta MD New Medications: Acetaminophen-Codeine (Tylenol-Codeine #3) 300-30 mg Tab 1 TAB PO Q4H PRN for PAIN, #10 TAB 0 Refills Imiquimod Topical (Imiquimod Topical) 5% Cream 1 APPLIC TOPICAL HS for Infection, #1 GM 0 Refills Ciprofloxacin (Cipro) 500 Mg Tab 500 MG PO Q12HR for Infection, #10 TAB Metronidazole (Flagyl) 500 Mg Tab 500 MG PO Q8HR for Infection, #15 TAB Juana Daniels MD Apr 27, 2017 11:46
[2017-04-27] MEDS ORDERED: PROPOFOL 200 MG/20 ML AMP IV ONE ×2 (12:00)
[2017-04-27] MEDS ORDERED: ePHEDrine/NS 25 MG/5 ML SYRINGE IV ONE (12:00)
[2017-04-27] MEDS ORDERED: LIDOCAINE HCL 1% PF 5 ML SYRINGE OTHER ONE ×2 (12:00)
[2017-04-27] MEDS ORDERED: PHENYLEPH/NS 1000 MCG/10 ML SYR IV ONE (12:00)
== END 2017-04-27 12:23 | disposition home or self-care (01) | DRG 391 ==
LOC: PHED 19:06 → PHEDA 22:22 → PHICU 04-25 00:20 → PH3A 04-27 07:08
PROVIDERS: ADMIT Hospitalist; ATTEND Hospitalist
PROC: 0DB78ZX Excision of Stomach, Pylorus, Via Natural or Artificial Opening Endoscopic, Diagnostic (ICD-10-PCS; principal; 2017-04-27 07:34)
PROC: 0DBL8ZX Excision of Transverse Colon, Via Natural or Artificial Opening Endoscopic, Diagnostic (ICD-10-PCS; 2017-04-27 07:34)
DX: K52.9 Noninfective gastroenteritis and colitis, unspecified (principal); K57.31 Diverticulosis of large intestine without perforation or abscess with bleeding; E87.1 Hypo-osmolality and hyponatremia; K29.70 Gastritis, unspecified, without bleeding; K63.5 Polyp of colon; D64.9 Anemia, unspecified; F17.210 Nicotine dependence, cigarettes, uncomplicated
CPT/HCPCS: 74177; 80053; 81001; 83690; 84484; 85025; 85610; 85730; 86850; 86900; 86901; 88305; 88312; 93005; 96374; 96375; 96376; C9113; J0744; J2270; J2370; J7030; Q9967